=== PATIENT | male | born 1955 | race Caucasian/White ===

== ENCOUNTER 2017-06-19 12:39 | Inpatient (IN) | payer OTHER ==
[~2017-06-19] VITALS: Ht 180.3 cm; Wt 99.8 kg
--- NOTE | 2017-06-19 14:55 | NUR ---
PRE -ASSESSMENT PRE ASSESSMENT DONE AT INTAKE OFFICE, PATIENT IS ALERT BUT SLIGHTLY INTOXICATED. HE PRESENTS WITH SLURRED SPEECH AND ANXIOUS MOOD. T. 98.1 HR 75 BP 108/59 O2 97% AND NO VERBAL COMPLAINTS OF PAIN. HE DENIES ANY ALLERGIES, FULL CODE AND STATES THAT HE IS A DIABETIC TAKING ORAL MEDS BUT LATELY WITH HIS DRINKING HE HAS NOT BEEN CHECKING HIS BLOOD SUGARS. PATIENT HAD HIP SURGERY 04/2017 AND COMPLICATIONS AFTER AND HAS 8 STITCHES IN LEFT HIP THAT ARE DRY AND INTACT. MD ON UNIT TO ASSESS PATIENT, WILL CONTINUE TO MONITOR. PATIENT IS HERE FOR SUPERVISED MEDICAL DETOX FROM ALCOHOL-VODKA AND HYDROCODONE/OPIATES.
--- NOTE | 2017-06-19 15:00 | NUR ---
ADMISSION NOTE The patient is a 61-year-old male who presents to [facility] for medically supervised withdrawal from alcohol and hydrocodone. The patient reports recently achieving thirty years of sobriety but relapsed two months ago. He reports the cause of the relapse was due to undergoing orthopedic surgery followed by a post-operative pain management prescription for hydrocodone, which he began not taking as prescribed. For the last two months, he reports using up to 225 mg of hydrocodone on a daily basis, last used on the day prior to admission. He reports relapsing with alcohol over one month ago, gradually increasing the quantity of alcohol consumed, but acknowledges drinking on a daily basis. However, for the last three days, he reports consuming up to one gallon of vodka on a daily basis, last used on the day of admission. He reports also taking unspecified quantities of Soma not as prescribed and zolpidem on a nightly basis. He has struggled with multiple attempts at sobriety, the longest being for thirty years prior to his recent relapse. The patient denies a history of withdrawal-induced seizures, but reports a history of accidental intoxication-induced overdoses. At the time of admission, the patient was acutely intoxicated from large quantities of alcohol consumed prior to admission without evidence of withdrawal. vital signs stable, last COWS 8 and CIWA 11
[2017-06-19] MEDS ORDERED: ZOLP10TA2 PO (16:32)
[2017-06-19] MEDS ORDERED: IBUP-1957 PO (16:32)
[2017-06-19] MEDS ORDERED: HYDR-3976 PO (16:32)
[2017-06-19] MEDS ORDERED: CELE200C PO (16:32)
[2017-06-19] MEDS ORDERED: DEXL60CA3 PO (16:32)
[2017-06-19] MEDS ORDERED: VALS1TAB7 PO (16:32)
[2017-06-19] MEDS ORDERED: EMPA10TA PO (16:32)
[2017-06-19] MEDS ORDERED: CARI350T PO (16:32)
[2017-06-19] MEDS ORDERED: CIPR500T5 PO (16:32)
[2017-06-19] MEDS ORDERED: MUPI22OI2 (16:32)
[2017-06-19] MEDS ORDERED: BISA-79 PO (16:32)
[2017-06-19] MEDS ORDERED: FAMO40TA71 PO (16:32)
[2017-06-19] MEDS ORDERED: GABA-534 PO (16:32)
[2017-06-19] MEDS ORDERED: ROSU20TA PO (16:32)
[2017-06-19] MEDS ORDERED: MAG HYDROX/AL HYDROX/SIMETH 30 ML LIQUID UDC PO PRN (16:45)
[2017-06-19] MEDS ORDERED: MIRALAX 17 GM POWD.PACK PO PRN (16:45)
[2017-06-19] MEDS ORDERED: LORAZEPAM 1 MG TABLET PO PRN (16:45)
[2017-06-19] MEDS ORDERED: CLONIDINE HCL 0.1 MG TABLET PO PRN (16:45)
[2017-06-19] MEDS ORDERED: BUPRENORPHINE HCL 2 MG TAB.SUBL SL PRN (16:45)
[2017-06-19] MEDS ORDERED: ONDANSETRON 4 MG/2 ML VIAL IM PRN (16:45)
[2017-06-19] MEDS ORDERED: IBUPROFEN 600 MG TABLET PO PRN (16:45)
[2017-06-19] MEDS ORDERED: LOPERAMIDE HCL 2 MG CAPSULE PO PRN ×2 (16:45)
[2017-06-19] MEDS ORDERED: LORAZEPAM 2 MG/1 ML VIAL IM PRN (16:45)
[2017-06-19] MEDS ORDERED: DICYCLOMINE HCL 20 MG TABLET PO PRN (16:45)
[2017-06-19] MEDS ORDERED: MAGNESIUM HYDROXIDE 30 ML LIQUID UDC PO PRN (16:45)
[2017-06-19] MEDS ORDERED: ACETAMINOPHEN 325 MG TABLET PO PRN (16:45)
[2017-06-19] MEDS ORDERED: ONDANSETRON ODT 4 MG TAB.RAPDIS SL PRN (16:45)
[2017-06-19] MEDS ORDERED: hydrALAZINE HCL 50 MG TABLET PO PRN (16:45)
[2017-06-19] MEDS ORDERED: RIZATRIPTAN 10MG PO PRN (17:00)
[2017-06-19 17:57] LABS: *AMPHETAMINE, URINE NEGATIVE (NEGATIVE); *BARBITURATE, URINE NEGATIVE (NEGATIVE); *CANNABINOID, URINE NEGATIVE (NEGATIVE); *COCCAINE, URINE NEGATIVE (NEGATIVE); *OPIATE, URINE POSITIVE (NEGATIVE); *PHENCYCLIDINE SCREEN,URINE NEGATIVE (NEGATIVE)
[2017-06-19] MEDS ORDERED: THIAMINE HCL 200 MG/2 ML VIAL IM ONE (18:00)
--- NOTE | 2017-06-19 19:13 | NUR ---
END OF SHIFT 61 YEAR OLD MALE ADMITTED TODAY 06/19/17 FOR ALCOHOL AND OPIATE WITHDRAWAL. UDS SENT TO LAB, AWAITING BLOOD DRAW AT THIS TIME. PATIENT ALERT AND ORIENTED. HISTORY OF DIABETES, MEDICATION CONTROLLED BY JARDIANCE PO 10MG PATIENT INSTRUCTED ON RULES OF THE UNIT AND STATES UNDERSTANDING. LAST CIWA 11 COWS 8 @ [address], BED ON LOW LOCKED POSITION WITH 2 SIDE RAILS UP. 5 DAY SUBUTEX/ATIVAN TAPER TO START WHEN PATIENT IS IN WITHDRAWAL PER MD. CONTINUE TO MONITOR
--- NOTE | 2017-06-19 19:30 | NUR ---
START OF SHIFT Pt is a 61 y/o male admitted for ETOH/OPIATE dependency.Pt is A/O X 4.PMH of diabetes,GERD and hip surgery on 05/02/17,still has stitches.Stitches are dry and intact.;no s/s if infection noted.Pt presented with extreme anxiety and restlessness,due to pain, withdrawal symptoms including nausea and myalgia.COWS=26,CIWA=23.Breathing is even and non labored;all safety measures are in place per hospital policy with call light within reach;will continue to medicate per orders and monitor for safety.
[2017-06-19] MEDS: LORAZEPAM 1 MG TABLET PO PRN (19:59)
[2017-06-19] MEDS: METHOCARBAMOL 750 MG TABLET PO PRN (19:59)
--- NOTE | 2017-06-19 20:00 | NUR ---
PRN MEDS PRN ATIVAN 2 MG PO GIVEN FOR CIWA 23,PRN SUBUTEX 4 MG SL GIVEN FOR COWS 26,PRN ROBAXIN AND ZOFRAN GIVEN ORDERED FOR C/O MYALGIA AND NAUSEA RESPECTIVELY.WILL MONITOR FOR EFFECTIVENESS.
--- NOTE | 2017-06-19 20:30 | NUR ---
PRN F/U PRN ZOFRAN IS EFFECTIVE,NAUSEA RELIEVED.
[2017-06-19] MEDS ORDERED: LORAZEPAM 1 MG TABLET PO SCH (21:00)
[2017-06-19] MEDS ORDERED: PATIENT MAY USE OWN MED- MD OK PO SCH ×2 (21:00→22:15)
[2017-06-19] MEDS ORDERED: BUPRENORPHINE HCL 2 MG TAB.SUBL SL SCH (21:00)
--- NOTE | 2017-06-19 21:00 | NUR ---
UNABLE TO REASSESS FOR COWS/CIWA AT THIS TIME,D/T PT BEING ASLEEP.WILL CONTINUE TO MONITOR.
[2017-06-19] MEDS: GABAPENTIN 300 MG CAPSULE PO SCH (21:12)
[2017-06-19] MEDS: CELECOXIB 200 MG PO SCH (21:12)
[2017-06-19] MEDS: ROSUVASTATIN 20MG PO SCH (21:13)
[2017-06-19 21:22] LABS: BASOPHILS % (AUTO) 0.4 % (0.0-2.0); BILIRUBIN,TOTAL 0.2 mg/dL (0.2-1.0); CREATININE 1.5 mg/dL (0.6-1.3); EOSINOPHILS # (AUTO) 0.1 K/uL (0.0-0.7); EOSINOPHILS % (AUTO) 0.6 % (0.0-7.0); HEMATOCRIT 40.7 % (36.7-47.1); HEMOGLOBIN 13.9 g/dL (12.5-16.3); LYMPHOCYTES # (AUTO) 2.2 K/uL (20.0-40.0); LYMPHOCYTES % (AUTO) 23.2 % (20.5-51.5); MEAN CORPUSCULAR HEMOGLOBIN 27.5 uug (23.8-33.4); MEAN CORPUSCULAR HGB CONC 34 g/dL (32.5-36.3); MEAN CORPUSCULAR VOLUME 80.6 fL (73.0-96.2); MONOCYTES # (AUTO) 0.8 K/uL (2.0-10.0); NEUTROPHILS # (AUTO) 6.4 K/uL (1.8-8.9); NEUTROPHILS % (AUTO) 67.8 % (38.5-71.5); PLATELET COUNT (AUTO) 340 K/uL (152-348); POTASSIUM 3.4 mmol/L (3.5-5.1); RED BLOOD CELL COUNT(AUTO) 5.06 MIL/uL (4.06-5.63); WHITE BLOOD COUNT (AUTO) 9.4 K/uL (3.6-10.2)
[2017-06-19] MEDS ORDERED: POTASSIUM CHLORIDE 20 MEQ TAB.PRT.SR PO ONE (21:45)
[2017-06-19] MEDS ORDERED: POTASSIUM CHLORIDE 20 MEQ TAB.PRT.SR ONE (22:02)
[2017-06-19] MEDS ORDERED: PANTOPRAZOLE SODIUM 40 MG TABLET.DR PO ONE ×2 (22:45→22:59)
--- NOTE | 2017-06-19 22:46 | NUR ---
PT C/O HAVING REFLUX PROBLEM.MD NOTIFIED.PROTONIX GIVEN ORDERED.ALSO K DUR GIVEN ORDERED FOR LOW POTASSIUM LEVEL.
[2017-06-20] VITALS: BP 128/77
--- NOTE | 2017-06-20 | NUR ---
COWS/CIWA/TEMP DEFERRED D/T PT BEING ASLEEP. BREATHING IS EVEN AND NON LABORED,NO S/S OF DISTRESS NOTED.
[2017-06-20 04:00] VITALS: BP 143/76
--- NOTE | 2017-06-20 06:37 | NUR ---
END OF SHIFT Pt is a 61 y/o male admitted for ETOH/OPIATE dependency.Pt is A/O X 4.PMH of diabetes,GERD and hip surgery on 05/02/17,still has stitches.Stitches are dry and intact.;no s/s if infection noted.Pt presented with extreme anxiety and restlessness,due to pain, withdrawal symptoms including nausea and myalgia.Initial COWS=26,CIWA=23.Last COWS=7, CIWA=5.PRN meds Ativan,Subutex,Zofran and Robaxin were given and were effective.Pt slept 5 hres,fluid intake was 2000 mls,voided x 3.Breathing is even and non labored;all safety measures are in place per hospital policy with call light within reach;will continue to medicate per orders and monitor for safety.
--- NOTE | 2017-06-20 07:30 | NUR ---
Start of Shift report: A/O x4 Lying in bed watching Tv. C/o anxiety and right hip pain. Encourage po fluids and rest. Pt on 5day ativan subutex taper. Tolerating well. skin w/d. Resp even and unlab. safety precautions observed. Call light within reach.
[2017-06-20] MEDS: LORAZEPAM 1 MG TABLET PO SCH ×3 (08:48→21:12)
[2017-06-20] MEDS: THIAMINE HCL 100 MG TABLET PO SCH (08:49)
[2017-06-20] MEDS: MULTIVITAMINS,THERAPEUTIC TABLET PO SCH (08:49)
[2017-06-20] MEDS: FOLIC ACID 1 MG TABLET PO SCH (08:49)
[2017-06-20] MEDS: GABAPENTIN 300 MG CAPSULE PO SCH ×3 (08:49→21:12)
[2017-06-20] MEDS: VALSARTAN PO SCH (08:50)
[2017-06-20] MEDS: HCTZ PO SCH (08:50)
[2017-06-20] MEDS: KETOROLAC TROMETHAMINE 30 MG INJ IM PRN (08:50)
[2017-06-20] MEDS: CELECOXIB 200 MG PO SCH ×2 (08:51→17:00)
[2017-06-20] MEDS: FAMOTIDINE 40MG PO SCH (08:51)
[2017-06-20] MEDS: JARDIANCE 10MG PO SCH (08:51)
[2017-06-20] MEDS: BUPRENORPHINE HCL 2 MG TAB.SUBL SL SCH ×3 (08:54→21:13)
[2017-06-20] MEDS ORDERED: TUBERCULIN,PURIF.PROT.DERIV. 5 TU/0.1 ML TEST ID ONE (09:00)
[2017-06-20] MEDS ORDERED: PATIENT MAY USE OWN MED- MD OK PO SCH (09:03)
--- NOTE | 2017-06-20 09:25 | NUR ---
Followup on right hip pain 8-10 Toradol effective 2-10 right hip pain denies of any anxiety.
[2017-06-20 10:03] VITALS: BP 143/76
[2017-06-20 12:26] VITALS: BP 137/76
[2017-06-20] MEDS: LORAZEPAM 1 MG TABLET PO PRN (13:45)
--- NOTE | 2017-06-20 13:51 | NUR ---
C/o 10-10 Anxiety [facility] that are over due. Notified Charge Nurse and given Ativan 2mg po.
--- NOTE | 2017-06-20 14:35 | NUR ---
Lying in bed denies of any anxiety Charge Nurse took picture of pt's r hip area and placed photo in chart right hip incision well proximated no s/s of infection 8 sutures intact.
[2017-06-20 17:39] VITALS: BP 142/90
[2017-06-20 20:00] VITALS: BP 133/94
--- NOTE | 2017-06-20 20:00 | NUR ---
Start of Shift Patient admitted for Hydrocodone and Alcohol dependence. Pt became dependent on Hydrocodone due to undergoing an orthopedic procedure. Pt in room with no SOB nor facial grimacing noted. Pt is AAOx4 and noted to be anxious. Pt was placed on a 5-day Ativan, and 5-day Subutex tapers, to end on 06/24/17 AM time. Provided teachings and education on plan of care. Verbalized understanding. Fall, universal, seizure and safety prec in place. Call light within reach. Latest COWS-5, CIWA-6. Will continue to monitor.
[2017-06-20] MEDS: ROSUVASTATIN 20MG PO SCH (21:15)
[2017-06-21] VITALS: BP 127/85
[2017-06-21 04:00] VITALS: BP 136/90
[2017-06-21] MEDS ORDERED: DEXILANT 60 MG PO SCH (07:00)
--- NOTE | 2017-06-21 07:19 | NUR ---
End of Shift Patient admitted for Hydrocodone and Alcohol dependence. Pt became dependent on Hydrocodone due to undergoing an orthopedic procedure. Pt in room with no SOB nor facial grimacing noted. Pt is AAOx4 and noted to be anxious. Pt was placed on a 5-day Ativan, and 5-day Subutex tapers, to end on 06/24/17 AM time. Provided teachings and education on plan of care. Verbalized understanding. Fall, universal, seizure and safety prec in place. Call light within reach. Latest COWS-5, CIWA-4, slept for 10 hours. Endorsed to AM shift nurse for continuity of care.
[2017-06-21 08:00] VITALS: BP 161/98
--- NOTE | 2017-06-21 08:10 | NUR ---
Start of Day Shift: A/0 x4 c/o 7-10 right hip pain ciwa 10 cow 9 given am meds with subutex and ativan taper. Encourage po fluids and rest. Safety/fall precautions followed. Contiued to [facility] for safety. Call light within reach.
[2017-06-21] MEDS: THIAMINE HCL 100 MG TABLET PO SCH (08:15)
[2017-06-21] MEDS: FOLIC ACID 1 MG TABLET PO SCH (08:15)
[2017-06-21] MEDS: MULTIVITAMINS,THERAPEUTIC TABLET PO SCH (08:15)
[2017-06-21] MEDS: GABAPENTIN 300 MG CAPSULE PO SCH ×3 (08:15→20:29)
[2017-06-21] MEDS: FAMOTIDINE 40MG PO SCH (08:16)
[2017-06-21] MEDS: JARDIANCE 10MG PO SCH (08:16)
[2017-06-21] MEDS: LORAZEPAM 1 MG TABLET PO SCH ×4 (08:16→20:31)
[2017-06-21] MEDS: VALSARTAN PO SCH (08:17)
[2017-06-21] MEDS: HCTZ PO SCH (08:17)
[2017-06-21] MEDS: CELECOXIB 200 MG PO SCH ×2 (08:17→17:17)
[2017-06-21] MEDS ORDERED: BUPRENORPHINE HCL 2 MG TAB.SUBL SL SCH (09:00)
[2017-06-21 09:12] LABS: HEPATITIS B SURFACE AG Negative (Negative)
--- NOTE | 2017-06-21 09:49 | NUR ---
Follow up right hip pain Toradol effective right hip pain 2-10.
[2017-06-21 09:56] LABS: CREATININE 0.9 mg/dL (0.6-1.3); MAGNESIUM 1.8 mg/dL (1.8-2.4); PHOSPHOROUS 3.4 mg/dL (2.5-4.9); POTASSIUM 3.7 mmol/L (3.5-5.1)
[2017-06-21 12:32] VITALS: BP 135/87
[2017-06-21] MEDS: BUPRENORPHINE HCL 2 MG TAB.SUBL SL SCH ×2 (15:11→20:31)
[2017-06-21] MEDS: BACLOFEN 10 MG TABLET PO SCH ×2 (15:12→20:30)
--- NOTE | 2017-06-21 15:49 | NUR ---
Consult order placed for Diabetic diet education. CELY provided DM diet education to patient . Tolerating current diet, eating 75-100% of meals Anthropometry:current weight is 220lb,BMI 30.7-obesity labs: 06/21 bun-28,glucose 137(h0,[id number]-4.2 MEDICATION:VITAMIN B1,FOLIC ACID,MVI, NO DNI Full nutrition assessment will be per schedule policy . Addendum: 06/23/17 at [address] Amended: Links added.
[2017-06-21 16:41] VITALS: BP 153/92
--- NOTE | 2017-06-21 18:24 | NUR ---
End of shift report: CIWA 14 COW 8 Hr 120's B/p 158/78 given B/p meds and ativan 1mg po. Client upset over not able to use the phone for business purposes. Will reeval v/s. Continue mointor for safety.
--- NOTE | 2017-06-21 18:40 | NUR ---
Re evaluation on v/s b/p 119 64 H[address] 103. 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
--- NOTE | 2017-06-21 19:30 | NUR ---
Start of Shift Notes Received 61 y/o male px admitted on 06/19/2017 for Hydrocodone and Alcohol dependence. Px is A&Ox4. Px has NKA, on DM diet and on Full code. Px was placed on a 5-day Ativan, and 5-day Subutex tapers. During the rounds at 1930, px reported moderate anxiety, sweats, very mild tremors and body aches of 8/10. Bed on lowest position, side rails up 2x, and call light within reach. We'll continue to monitor.
[2017-06-21 20:00] VITALS: BP 119/71
[2017-06-21] MEDS: ROSUVASTATIN 20MG PO SCH (20:28)
[2017-06-21] MEDS: DEXILANT 60 MG PO SCH (20:29)
[2017-06-21] MEDS: CLONIDINE HCL 0.1 MG TABLET PO SCH (20:30)
[2017-06-21] MEDS ORDERED: POTASSIUM CHLORIDE 20 MEQ TAB.PRT.SR PO ONE (21:00)
[2017-06-21] MEDS ORDERED: MAGNESIUM OXIDE 400 MG TABLET PO ONE (21:00)
[2017-06-22] VITALS: BP 120/70
[2017-06-22 04:00] VITALS: BP 127/71
--- NOTE | 2017-06-22 04:00 | NUR ---
COWS and CIWA deferred COWS and CIWA deferred at 0000 and 0400 due to the px is asleep, to assess if the px is awake per doctor's order. We'll continue to monitor.
--- NOTE | 2017-06-22 07:12 | NUR ---
End of Shift Notes 61 y/o male px admitted on 06/19/2017 for Hydrocodone and Alcohol dependence. Px is A&Ox4. Px has NKA, on DM diet and on Full code. Px was placed on a 5-day Ativan, and 5-day Subutex tapers. During the shift, px reported moderate anxiety, sweats, very mild tremors and body aches of 8/10. Oral intake of 1,500 ml, voided 4x, BM 1x. Slept for 7.5 hours. Bed on lowest position, side rails up 2x, and call light within reach. We'll continue to monitor.
--- NOTE | 2017-06-22 07:40 | NUR ---
START OF SHIFT Rcvd endorsement from ongoing nurse, client is in room, he presents with anxious mood, flat affect, moist skin, tremors felt, not observed. He reports feeling very anxious, stomach cramps, generalized body aches, restless legs, and fatigue. Stitches on R hip intact (sp R hip replacement 05/02/17), client requests to know when they will be removed. Encouraged client to attend group therapy for skills to maintain sober. Encourage client to increase PO fluid intake as tolerated to facilitate detox. Client is a 61 y/o male admitted to [facility] for withtdrawal from alcohol and hydrocodone. He is on 5 day Ativan, 5 day Subutex taper, (day 3), tolerating well. Client reports NKA, full code, consistent carbohydrate diet. Bed in lowest/locked position, side rails x 2 up/padded. call light within reach.
[2017-06-22 08:55] VITALS: BP 136/87
[2017-06-22] MEDS: THIAMINE HCL 100 MG TABLET PO SCH (08:59)
[2017-06-22] MEDS: GABAPENTIN 300 MG CAPSULE PO SCH ×3 (08:59→21:12)
[2017-06-22] MEDS: FOLIC ACID 1 MG TABLET PO SCH (08:59)
[2017-06-22] MEDS: LORAZEPAM 1 MG TABLET PO SCH ×3 (08:59→21:11)
[2017-06-22] MEDS: MULTIVITAMINS,THERAPEUTIC TABLET PO SCH (08:59)
[2017-06-22] MEDS: BACLOFEN 10 MG TABLET PO SCH (08:59)
[2017-06-22] MEDS: BUPRENORPHINE HCL 2 MG TAB.SUBL SL SCH ×3 (09:00→21:11)
[2017-06-22] MEDS: CLONIDINE HCL 0.1 MG TABLET PO SCH ×2 (09:00→21:12)
[2017-06-22] MEDS: JARDIANCE 10MG PO SCH (09:03)
[2017-06-22] MEDS: FAMOTIDINE 40MG PO SCH (09:03)
[2017-06-22] MEDS: HCTZ PO SCH (09:03)
[2017-06-22] MEDS: VALSARTAN PO SCH (09:03)
[2017-06-22] MEDS: CELECOXIB 200 MG PO SCH ×2 (09:03→17:50)
--- NOTE | 2017-06-22 12:25 | NUR ---
Therapist prompted client to attend group today. Client agreed to attend.
[2017-06-22 12:56] VITALS: BP 116/85
[2017-06-22] MEDS: KETOROLAC TROMETHAMINE 30 MG INJ IM PRN (13:23)
--- NOTE | 2017-06-22 13:23 | NUR ---
PRN Clonidine 0.1mg PO, Toradol 30mg Inj IM administered for anxiety MB P 110, irritability, and lower back pain 01/18 respectively. Will continue to monitor. Call light within reach.
--- NOTE | 2017-06-22 13:53 | NUR ---
Reassessment PRN Toradol 30mg Inj IM, client reports a decrease in lower back pain 2/10, but tolerable. Call light within reach.
--- NOTE | 2017-06-22 14:23 | NUR ---
PRN Clonidine 0.1mg PO, client is in bed, he sound asleep, RR 16, even, non-labored. Will continue to monitor. Call light within reach. Addendum: 06/22/17 at 1902 by INGE PRUITT RN REASSESSMENT
[2017-06-22] MEDS ORDERED: METHYL SALICYLATE/MENTHOL CREAM 28 GM TUBE TOP PRN (14:30)
--- NOTE | 2017-06-22 15:20 | NUR ---
Therapist prompted client to attend group. Client agreed
[2017-06-22 16:00] VITALS: BP 126/72
--- NOTE | 2017-06-22 19:02 | NUR ---
END OF SHIFT Client is a 61 y/o male admitted to [facility] for withdrawal from alcohol and hydrocodone. He is on 5 day Ativan, 5 day Subutex taper, (day 3), tolerating well. PRN Clonidine 0.1mg PO, Toradol 30mg Inj IM administered for anxiety MB P 110, irritability, and lower back pain 01/18 respectively, noted effective. Adequate PO fluid intake 3363mL, void x 3, stool x 1. Clienmt is compliant with 2/3 og group therapy. Client reports NKA, full code, consistent carbohydrate diet. Bed in lowest/locked position, side rails x 2 up/padded. call light within reach.
--- NOTE | 2017-06-22 19:10 | NUR ---
Nursing notes Nurse Practitioner gave a verbal order, read back to her, daily cleanse to area on R anterior thigh with normal saline, pat dry and cover with gauze.
--- NOTE | 2017-06-22 19:15 | NUR ---
START OF SHIFT NOTE : Pt. is 61 year old male, admitted to [facility] on 06/19/2017 for opiates and ETOH detox treatment. He is on 5 day Ativan, 5 day Subutex taper, tolerating well. Client reports NKA, full code, consistent carbohydrate diet. Pt. presents with anxious mood, flat affect, tremors felt, not observed. He reports feeling very anxious, restless legs, and fatigue. Stitches on R hip intact (sp R hip replacement 05/02/17). Pt. was seen by [facility], new order given. Bed in lowest/locked position, side rails x 2 up/padded. call light within reach.
[2017-06-22 20:00] VITALS: BP 105/74
--- NOTE | 2017-06-22 21:00 | NUR ---
PRN BENADRYL Pt. complains of sleeplessness. PRN BENADRYL given as ordered. Safety measures in place : bed on lowest position with side rails x2 up for safety, call light within reach. Will continue to monitor closely and offer help.
[2017-06-22] MEDS: diphenhydrAMINE 50 MG CAPSULE PO PRN (21:11)
[2017-06-22] MEDS: BACLOFEN 20 MG TABLET PO SCH (21:11)
[2017-06-22] MEDS: DEXILANT 60 MG PO SCH (21:12)
[2017-06-22] MEDS: ROSUVASTATIN 20MG PO SCH (21:12)
--- NOTE | 2017-06-22 22:00 | NUR ---
RE-ASSESSMENT DREAD Pt. is sleeping, RR=16 unlabored and even. Safety measures in place : bed on lowest position with side rails x2 up for safety, call light within reach. Will continue to monitor closely and offer help.
--- NOTE | 2017-06-23 06:41 | NUR ---
END OF SHIFT NOTE : Pt. is 61 year old male, admitted to [facility] on 06/19/2017 for opiates and ETOH detox treatment. He is on 5 day Ativan, 5 day Subutex taper, tolerating well. Client reports NKA, full code, consistent carbohydrate diet. Pt. presents with anxious mood, flat affect, tremors felt, not observed. He reports feeling very anxious, restless legs, and fatigue. Stitches on R hip intact (sp R hip replacement 05/02/17). Dressing change should be done x 1 daily. Pt remains compliant with the treatment plan. PRN Benadryl were given during my shift. V/S remain WNL. RR=16, even and unlabored, lungs clear upon auscultation, abdomen soft and non- distended. Pt denies nausea, vomiting and diarrhea. CIWA and COWS taken when pt. was alert during the night, LAST CIWA=4 ,COWS=4 at 0400 , INTAKE=1,000 ml, voided x2 , slept 9 hours. Safety measures in place : bed on lowest position with side rails x2 up for safety, call light within reach. Will continue to monitor closely and offer help.
--- NOTE | 2017-06-23 07:40 | NUR ---
START OF SHIFT Rcvd endorsement from ongoing nurse, client is in room, he presents with depressed mood, flat affect. He reports feeling , stomach cramps, generalized body aches, restless legs, and fatigue. Stitches on R anterior thigh, skin intact, no redness or drainage noted, (sp R hip replacement additional procedure on 06/05/17), daily cleanse with NS, pat dry, cover with gauze. Encouraged client to attend group therapy for skills to maintain sober. Encourage client to increase PO fluid intake as tolerated to facilitate detox. Client is a 61 y/o male admitted to [facility] for withdrawal from alcohol and hydrocodone. He is on 5 day Ativan, 5 day Subutex taper, (day 4), tolerating well. Benadryl 50mg PO for inability to sleep, he slept 9 hrs. Client reports NKA, full code, consistent carbohydrate diet. Bed in lowest/locked position, side rails x 2 up/padded. call light within reach.
[2017-06-23 08:00] VITALS: BP 124/80
[2017-06-23] MEDS: THIAMINE HCL 100 MG TABLET PO SCH (08:56)
[2017-06-23] MEDS: MULTIVITAMINS,THERAPEUTIC TABLET PO SCH (08:56)
[2017-06-23] MEDS: BACLOFEN 20 MG TABLET PO SCH ×3 (08:56→20:25)
[2017-06-23] MEDS: LORAZEPAM 1 MG TABLET PO SCH ×2 (08:56→20:24)
[2017-06-23] MEDS: CLONIDINE HCL 0.1 MG TABLET PO SCH ×2 (08:56→20:24)
[2017-06-23] MEDS: FOLIC ACID 1 MG TABLET PO SCH (08:56)
[2017-06-23] MEDS: GABAPENTIN 300 MG CAPSULE PO SCH ×3 (08:56→20:25)
[2017-06-23] MEDS: JARDIANCE 10MG PO SCH (08:57)
[2017-06-23] MEDS: CELECOXIB 200 MG PO SCH ×2 (08:57→18:11)
[2017-06-23] MEDS: VALSARTAN PO SCH (08:57)
[2017-06-23] MEDS: FAMOTIDINE 40MG PO SCH (08:57)
[2017-06-23] MEDS: HCTZ PO SCH (08:57)
[2017-06-23] MEDS: BUPRENORPHINE HCL 2 MG TAB.SUBL SL SCH ×2 (09:01→20:24)
--- NOTE | 2017-06-23 12:27 | NUR ---
therapist prompted client to come into group. Client agreed
[2017-06-23 12:28] VITALS: BP 148/86
[2017-06-23] MEDS: KETOROLAC TROMETHAMINE 30 MG INJ IM PRN (13:20)
--- NOTE | 2017-06-23 13:20 | NUR ---
PRN Toradol 30mg Inj IM administered for lower back pain 01/18. Will continue to monitor. Call light within reach.
--- NOTE | 2017-06-23 13:50 | NUR ---
Reassessment PRN Toradol 30mg Inj IM help decrease lower back pain to 4/10, but tolerable. Schedule medication Gabapentin 300mg and Baclofen 20mg administered. Call light within reach.
[2017-06-23 16:58] VITALS: BP 126/76
--- NOTE | 2017-06-23 19:00 | NUR ---
END OF SHIFT Client is a 61 y/o male admitted to [facility] for withdrawal from alcohol and hydrocodone. He is on 5 day Ativan, 5 day Subutex taper, (day 4), tolerating well. PRN Toradol 30mg IM for lower back pain 8/10, decreased pain to 4/10, but tolerable. Adequate PO fluid intake 2988mL, void x 6, stool x 1. Additional education needed on diabetic diet. Client is compliant with group therapy. Client reports NKA, full code, consistent carbohydrate diet. Bed in lowest/locked position, side rails x 2 up/padded. call light within reach. Endorsed to incoming nurse.
--- NOTE | 2017-06-23 19:15 | NUR ---
START OF SHIFT NOTE : Pt. is 61 year old male, admitted to [facility] on 06/19/2017 for opiates and ETOH detox treatment. He is on 5 day Ativan, 5 day Subutex taper, tolerating well. Client reports NKA, full code, consistent carbohydrate diet. Pt. presents with anxious mood, flat affect, tremors felt, not observed. He complains of increased level of anxiety, restless legs. Stitches on R hip intact (sp R hip replacement 05/02/17). Dressing change should be done x 1 daily. Safety measures in place : bed on lowest position with side rails x2 up for safety, call light within reach. Will continue to monitor closely and offer help.
[2017-06-23 20:00] VITALS: BP 129/82
[2017-06-23] MEDS: diphenhydrAMINE 50 MG CAPSULE PO PRN (20:25)
[2017-06-23] MEDS: DEXILANT 60 MG PO SCH (20:37)
[2017-06-23] MEDS: ROSUVASTATIN 20MG PO SCH (20:37)
--- NOTE | 2017-06-24 06:34 | NUR ---
END OF SHIFT NOTE : Pt. is 61 year old male, admitted to [facility] on 06/19/2017 for opiates and ETOH detox treatment. He is on 5 day Ativan, 5 day Subutex taper, tolerating well. Client reports NKA, full code, consistent carbohydrate diet. Pt remains compliant with the treatment plan. PRN BENADRYL given during my shift. V/S remain WNL. RR=16, even and unlabored, lungs clear upon auscultation, abdomen soft and non- distended. Pt denies nausea, vomiting and diarrhea. CIWA and COWS taken when pt. was alert during the night, LAST CIWA=5 ,COWS=5 at 0400 , UITRLY=223 ml, voided x1 , slept 7 hours. Safety measures in place : bed on lowest position with side rails x2 up for safety, call light within reach. Will continue to monitor closely and offer help.
--- NOTE | 2017-06-24 08:00 | NUR ---
Start Shift Report- Rcvd endorsement from ongoing nurse, client is in room, he presents with depressed mood, flat affect. He denies c/o pain, N/V/D. Encouraged Pt to increase fluid intake as tolerated to facilitate detox. Encourage Pt to attend group therapy to maintain sobriety. Stitches on R anterior thigh, skin intact, no redness or drainage noted, (sp R hip replacement additional procedure on 06/05/17), daily cleanse with NS, pat dry, cover with gauze. Client is a 62 y/o male admitted to [facility] for withdrawal from alcohol and hydrocodone. He is on 5 day Ativan, 5 day Subutex taper, (day 3), tolerating well. He slept 7 hrs. Client reports NKA, full code, consistent carbohydrate diet. Bed in lowest/locked position, side rails x 2 up/padded. call light within reach. Will continue to monitor. Addendum: 06/24/17 at 0846 by mEi العلي RN 399 last [facility]
[2017-06-24 08:47] VITALS: BP 133/79
[2017-06-24] MEDS ORDERED: BUPRENORPHINE HCL 2 MG TAB.SUBL SL SCH (09:00)
[2017-06-24] MEDS ORDERED: LORAZEPAM 1 MG TABLET PO SCH (09:00)
[2017-06-24] MEDS: GABAPENTIN 300 MG CAPSULE PO SCH ×3 (09:30→20:53)
[2017-06-24] MEDS: CLONIDINE HCL 0.1 MG TABLET PO SCH ×2 (09:31→20:53)
[2017-06-24] MEDS: FOLIC ACID 1 MG TABLET PO SCH (09:31)
[2017-06-24] MEDS: CELECOXIB 200 MG PO SCH ×2 (09:31→16:44)
[2017-06-24] MEDS: BACLOFEN 20 MG TABLET PO SCH ×3 (09:31→20:53)
[2017-06-24] MEDS: FAMOTIDINE 40MG PO SCH (09:31)
[2017-06-24] MEDS: JARDIANCE 10MG PO SCH (09:32)
[2017-06-24] MEDS: HCTZ PO SCH (09:32)
[2017-06-24] MEDS: MULTIVITAMINS,THERAPEUTIC TABLET PO SCH (09:32)
[2017-06-24] MEDS: THIAMINE HCL 100 MG TABLET PO SCH (09:32)
[2017-06-24] MEDS: VALSARTAN PO SCH (09:32)
--- NOTE | 2017-06-24 12:00 | NUR ---
Incision assessment- Incision right hip with sutures. Clean, dry, no drainage. Completed NS rinse , pat dry with 4x4. Applied dry gauze dressing.
[2017-06-24 12:24] VITALS: BP 119/74
[2017-06-24] MEDS ORDERED: GABA-534 PO (13:27)
[2017-06-24] MEDS ORDERED: CLON0.1T14 PO (13:27)
[2017-06-24] MEDS ORDERED: METH-406 PO (13:27)
[2017-06-24 16:00] VITALS: BP 132/85
--- NOTE | 2017-06-24 18:33 | NUR ---
End of shift Report- Client is in room watching TV, A/O x4. He presents with depressed mood, flat affect. He c/o chronic pain #5/10, denies N/V/D. Adequate PO fluid intake 2550, voids 5, BM x1. PT compliant and attended group therapy for coping skill to maintain sobriety. Stitches on Rt anterior thigh, dry with dressing , no redness or drainage noted, (sp R hip replacement additional procedure on 06/05/17), daily cleanse with NS, pat dry, cover with gauze. Client is a 62 y/o male admitted to [facility] for withdrawal from alcohol and hydrocodone. He is on 5 day Ativan, 5 day Subutex taper, tolerating well. At 1600 last CIWA 4/COWS 3. Client reports NKA, full code, consistent carbohydrate diet. Bed in lowest/locked position, side rails x 2 up/padded. call light within reach. Will continue to monitor and endorse to PM shift.
[2017-06-24 20:00] VITALS: BP 121/82
--- NOTE | 2017-06-24 20:00 | NUR ---
Start of Shift Notes Received 61 y/o male px admitted on 06/19/2017 for Hydrocodone and Alcohol dependence. Px is A&Ox4. Px has NKA, on DM diet and on Full code. Px completed a 5-day Ativan, and 5-day Subutex taper. During the rounds at 2000, px complained of body aches of 8/10. To D/C tomorrow 06/25/2017 Bed on lowest position, side rails up 2x, and call light within reach. We'll continue to monitor.
[2017-06-24] MEDS: METHOCARBAMOL 750 MG TABLET PO PRN (20:53)
--- NOTE | 2017-06-24 20:53 | NUR ---
PRN Robaxin Px complained of body pains concentrating on right hip 01/18. Robaxin 750 mg/tab, 1 tab given PO as PRN meds. We'll continue to monitor.
[2017-06-24] MEDS: DEXILANT 60 MG PO SCH (20:54)
[2017-06-24] MEDS: ROSUVASTATIN 20MG PO SCH (20:54)
--- NOTE | 2017-06-24 22:00 | NUR ---
Reassessment of pain Px verbalized that pain decreased to 5/10 from 8/10 after an hour of administration of Robaxin 750 mg PO. We'll continue to monitor.
[2017-06-25] VITALS: BP 105/77
[2017-06-25 04:00] VITALS: BP 115/81
--- NOTE | 2017-06-25 07:08 | NUR ---
Start of shift note; Received report from night nurse. Patient is a 61 year old male admitted on 06/19/17 to detoxify from ETOH, Opioid. Patient completed 5 day Ativan and 5 day Subutex taper without any adverse reactions. Patient reported history of DM type 2, hip surgery, GERD, hypertension, depression, insomnia, lower back pain. Patient is on full code status, NKA. Patient is on fall and seizure precaution, bed in lowest position, call light within reach. Will continue to monitor patient.
--- NOTE | 2017-06-25 07:08 | NUR ---
End of Shift Notes 61 y/o male px admitted on 06/19/2017 for Hydrocodone and Alcohol dependence. Px is A&Ox4. Px has NKA, on DM diet and on Full code. Px was placed on a 5-day Ativan, and 5-day Subutex tapers. During the shift, px complained of body aches of 8/10. Robaxin 750 mg/tab, 1 tab given PO as PRN meds. Px to D/C today 06/25/2017. Oral intake of 1,500 ml, voided 3x, BM 1x. Slept for 7.5 hours. Bed on lowest position, side rails up 2x, and call light within reach. We'll continue to monitor.
[2017-06-25] MEDS: FAMOTIDINE 40MG PO SCH (08:13)
[2017-06-25] MEDS: HCTZ PO SCH (08:13)
[2017-06-25] MEDS: THIAMINE HCL 100 MG TABLET PO SCH (08:13)
[2017-06-25] MEDS: CELECOXIB 200 MG PO SCH (08:13)
[2017-06-25] MEDS: JARDIANCE 10MG PO SCH (08:13)
[2017-06-25] MEDS: VALSARTAN PO SCH (08:13)
[2017-06-25] MEDS: GABAPENTIN 300 MG CAPSULE PO SCH (08:14)
[2017-06-25] MEDS: CLONIDINE HCL 0.1 MG TABLET PO SCH (08:14)
[2017-06-25] MEDS: MULTIVITAMINS,THERAPEUTIC TABLET PO SCH (08:14)
[2017-06-25] MEDS: FOLIC ACID 1 MG TABLET PO SCH (08:14)
[2017-06-25] MEDS: BACLOFEN 20 MG TABLET PO SCH (08:14)
--- NOTE | 2017-06-25 08:15 | NUR ---
VSS Discharge papers signed and home medication bag signed.
[2017-06-25 08:59] VITALS: BP 125/78
--- NOTE | 2017-06-25 09:15 | NUR ---
Pt discharged in stable condition with all valuables, belongings and home meds. Denies SI/HI. To home via private car with mother.
== END 2017-06-25 09:15 | disposition home or self-care (01) | DRG 895 ==
LOC: SRC 14:44
PROVIDERS: ADMIT Internal Medicine; ATTEND Internal Medicine
PROC: HZ2ZZZZ Detoxification Services for Substance Abuse Treatment (ICD-10-PCS; principal; 2017-06-19)
PROC: HZ41ZZZ Group Counseling for Substance Abuse Treatment, Behavioral (ICD-10-PCS; 2017-06-20)
PROC: HZ31ZZZ Individual Counseling for Substance Abuse Treatment, Behavioral (ICD-10-PCS; 2017-06-22)
DX: F10.232 Alcohol dependence with withdrawal with perceptual disturbance (principal); N17.9 Acute kidney failure, unspecified; E87.2 Acidosis; I65.29 Occlusion and stenosis of unspecified carotid artery; F13.232 Sedative, hypnotic or anxiolytic dependence with withdrawal with perceptual disturbance; K70.10 Alcoholic hepatitis without ascites; E66.9 Obesity, unspecified; E78.5 Hyperlipidemia, unspecified; F11.23 Opioid dependence with withdrawal; Y90.4 Blood alcohol level of 80-99 mg/100 ml; Z91.89 Other specified personal risk factors, not elsewhere classified; F17.211 Nicotine dependence, cigarettes, in remission; Z68.31 Body mass index [BMI] 31.0-31.9, adult; Z96.641 Presence of right artificial hip joint; E11.9 Type 2 diabetes mellitus without complications; Z79.84 Long term (current) use of oral hypoglycemic drugs; Z79.899 Other long term (current) drug therapy; G43.909 Migraine, unspecified, not intractable, without status migrainosus; G89.29 Other chronic pain; G47.00 Insomnia, unspecified; E87.6 Hypokalemia; I15.9 Secondary hypertension, unspecified; M50.90 Cervical disc disorder, unspecified, unspecified cervical region; Z81.1 Family history of alcohol abuse and dependence; M54.5 Low back pain; F32.9 Major depressive disorder, single episode, unspecified
CPT/HCPCS: 36415; 70030-TC; 80307; 80361; 83735; 84100; 85025; 86580; 86592; 86705; 86803; 87340; 87806; A4663; G0480; J1885; J3411; Q0162; Q0163

== ENCOUNTER 2017-09-09 13:36 | Inpatient (IN) | payer OTHER ==
[~2017-09-09] VITALS: Ht 180.3 cm; Wt 99.8 kg
[~2017-09-09 13:36] MED LIST: BISA-79 PO; CARI350T PO; CELE200C PO; CLON0.1T14 PO; DEXL60CA3 PO; EMPA10TA PO; FAMO40TA71 PO; GABA-534 PO; IBUP-1957 PO; METH-406 PO; MUPI22OI2; ROSU20TA PO; VALS1TAB7 PO
[2017-09-09] MEDS ORDERED: FIDA200T PO (14:21)
[2017-09-09] MEDS ORDERED: METO50TA7 PO (14:21)
[2017-09-09] MEDS ORDERED: TRAZ-144 PO (14:21)
[2017-09-09] MEDS ORDERED: DEXL60CA3 PO (14:21)
[2017-09-09] MEDS ORDERED: VENL37.515 PO (14:21)
[2017-09-09] MEDS ORDERED: RIZA10TA27 PO (14:21)
[2017-09-09] MEDS ORDERED: METF-494 PO (14:21)
[2017-09-09] MEDS ORDERED: ONDANSETRON ODT 4 MG TAB.RAPDIS SL PRN (14:45)
[2017-09-09] MEDS ORDERED: DICYCLOMINE HCL 20 MG TABLET PO PRN (14:45)
[2017-09-09] MEDS ORDERED: hydrALAZINE HCL 50 MG TABLET PO PRN (14:45)
[2017-09-09] MEDS ORDERED: LORAZEPAM 2 MG/1 ML VIAL IM PRN (14:45)
[2017-09-09] MEDS ORDERED: MAG HYDROX/AL HYDROX/SIMETH 30 ML LIQUID UDC PO PRN (14:45)
[2017-09-09] MEDS ORDERED: THIAMINE HCL 200 MG/2 ML VIAL IM ONE (14:45)
[2017-09-09] MEDS ORDERED: MAGNESIUM HYDROXIDE 30 ML LIQUID UDC PO PRN (14:45)
[2017-09-09] MEDS ORDERED: LOPERAMIDE HCL 2 MG CAPSULE PO PRN ×2 (14:45)
[2017-09-09] MEDS ORDERED: NICOTINE 14 MG/24HR PATCH TD PRN (14:45)
[2017-09-09] MEDS ORDERED: PATIENT MAY USE OWN MED- MD OK PO PRN ×2 (14:45→15:00)
[2017-09-09] MEDS ORDERED: ONDANSETRON 4 MG/2 ML VIAL IM PRN (14:45)
[2017-09-09] MEDS ORDERED: DOCUSATE SODIUM 250 MG CAPSULE PO PRN (14:45)
[2017-09-09] MEDS ORDERED: NICOTINE POLACRILEX 4 MG GUM-PK OF TEN BC PRN (14:45)
[2017-09-09] MEDS ORDERED: LORAZEPAM 1 MG TABLET PO PRN (14:45)
[2017-09-09] MEDS ORDERED: MIRALAX 17 GM POWD.PACK PO PRN (14:45)
[2017-09-09] MEDS ORDERED: diphenhydrAMINE 50 MG CAPSULE PO PRN (14:45)
[2017-09-09] MEDS: THIAMINE HCL 100 MG TABLET PO SCH (15:00)
[2017-09-09 15:17] LABS: *AMPHETAMINE, URINE NEGATIVE (NEGATIVE); *BARBITURATE, URINE NEGATIVE (NEGATIVE); *CANNABINOID, URINE NEGATIVE (NEGATIVE); *COCCAINE, URINE NEGATIVE (NEGATIVE); *OPIATE, URINE NEGATIVE (NEGATIVE); *PHENCYCLIDINE SCREEN,URINE NEGATIVE (NEGATIVE)
[2017-09-09 16:00] VITALS: BP 129/82
[2017-09-09] MEDS: METHOCARBAMOL 750 MG TABLET PO PRN (16:07)
[2017-09-09] MEDS: IBUPROFEN 600 MG TABLET PO PRN (16:07)
[2017-09-09] MEDS: BUPRENORPHINE HCL 2 MG TAB.SUBL SL PRN (16:08)
[2017-09-09] MEDS ORDERED: SUMATRIPTAN SUCCINATE 50 MG TABLET PO PRN (16:15)
[2017-09-09 17:44] LABS: BASOPHILS # (AUTO) 0.1 K/uL (0.0-8.0); BASOPHILS % (AUTO) 0.7 % (0.0-2.0); EOSINOPHILS % (AUTO) 0.1 % (0.0-7.0); HEMATOCRIT 45.5 % (36.7-47.1); HEMOGLOBIN 15.3 g/dL (12.5-16.3); LYMPHOCYTES # (AUTO) 2.5 K/uL (20.0-40.0); LYMPHOCYTES % (AUTO) 29.2 % (20.5-51.5); MEAN CORPUSCULAR HEMOGLOBIN 26.8 uug (23.8-33.4); MEAN CORPUSCULAR HGB CONC 34 g/dL (32.5-36.3); MEAN CORPUSCULAR VOLUME 79.7 fL (73.0-96.2); MONOCYTES # (AUTO) 0.7 K/uL (2.0-10.0); MONOCYTES % (AUTO) 8.3 % (0.0-11.0); NEUTROPHILS # (AUTO) 5.2 K/uL (1.8-8.9); NEUTROPHILS % (AUTO) 61.7 % (38.5-71.5); PLATELET COUNT (AUTO) 385 K/uL (152-348); RED BLOOD CELL COUNT(AUTO) 5.71 MIL/uL (4.06-5.63); WHITE BLOOD COUNT (AUTO) 8.4 K/uL (3.6-10.2)
[2017-09-09 17:52] LABS: BILIRUBIN,TOTAL 0.2 mg/dL (0.2-1.0); MAGNESIUM 1.8 mg/dL (1.8-2.4); POTASSIUM 3.4 mmol/L (3.5-5.1)
[2017-09-09 17:59] LABS: THYROID STIMULATING HORMONE 1.019 mIU/mL (0.358-3.740)
[2017-09-09] MEDS ORDERED: POTASSIUM CHLORIDE 10 MEQ TAB.PRT.SR PO ONE (18:30)
[2017-09-09 20:00] VITALS: BP 160/100
[2017-09-09] MEDS ORDERED: LORAZEPAM 1 MG TABLET PO SCH (21:00)
[2017-09-09] MEDS: GABAPENTIN 300MG PO SCH (21:43)
[2017-09-10] VITALS (7 sets, daily range): BP systolic 135–159; BP diastolic 79–95
[2017-09-10] MEDS: LORAZEPAM 1 MG TABLET PO PRN ×2 (06:22→17:14)
[2017-09-10] MEDS: MULTIVITAMINS,THERAPEUTIC TABLET PO SCH (08:30)
[2017-09-10] MEDS: THIAMINE HCL 100 MG TABLET PO SCH (08:30)
[2017-09-10] MEDS: HCTZ PO SCH (08:30)
[2017-09-10] MEDS: VALSARTAN PO SCH (08:30)
[2017-09-10] MEDS: GABAPENTIN 300MG PO SCH ×3 (08:30→20:16)
[2017-09-10] MEDS: FOLIC ACID 1 MG TABLET PO SCH (08:30)
[2017-09-10] MEDS: LORAZEPAM 1 MG TABLET PO SCH ×4 (08:31→20:15)
[2017-09-10] MEDS ORDERED: THIAMINE HCL 100 MG TABLET PO SCH (09:00)
[2017-09-10] MEDS ORDERED: TUBERCULIN,PURIF.PROT.DERIV. 5 TU/0.1 ML TEST ID ONE (09:00)
[2017-09-10] MEDS ORDERED: METOPROLOL 50 MG PO SCH (09:00)
[2017-09-10] MEDS ORDERED: hydrALAZINE HCL 50 MG TABLET PO PRN (11:15)
[2017-09-10] MEDS: ACETAMINOPHEN 325 MG TABLET PO PRN (12:27)
[2017-09-10] MEDS: METHOCARBAMOL 750 MG TABLET PO PRN (12:27)
[2017-09-10] MEDS ORDERED: METOPROLOL SUCCINATE XL 50 MG TAB.SR.24H PO ONE (13:00)
[2017-09-10] MEDS: VENLAFAXINE XR 75 MG CAP.SR.24H PO SCH (16:32)
[2017-09-10] MEDS: BUPRENORPHINE HCL 2 MG TAB.SUBL SL PRN (16:45)
[2017-09-10] MEDS: TRAZODONE 50 MG TABLET PO SCH (20:15)
[2017-09-11 04:00] VITALS: BP 132/86
[2017-09-11 06:06] LABS: HEPATITIS B SURFACE AG Negative (Negative)
[2017-09-11 08:00] VITALS: BP 135/85
[2017-09-11] MEDS: FOLIC ACID 1 MG TABLET PO SCH (08:57)
[2017-09-11] MEDS: THIAMINE HCL 100 MG TABLET PO SCH (08:57)
[2017-09-11] MEDS: VENLAFAXINE XR 75 MG CAP.SR.24H PO SCH (08:57)
[2017-09-11] MEDS: MULTIVITAMINS,THERAPEUTIC TABLET PO SCH (08:57)
[2017-09-11] MEDS: LORAZEPAM 1 MG TABLET PO SCH ×3 (08:57→20:12)
[2017-09-11] MEDS: METHOCARBAMOL 750 MG TABLET PO PRN (08:57)
[2017-09-11] MEDS: METOPROLOL 50 MG PO SCH (08:58)
[2017-09-11] MEDS: VALSARTAN PO SCH (08:58)
[2017-09-11] MEDS: GABAPENTIN 300MG PO SCH ×3 (08:58→20:12)
[2017-09-11] MEDS: HCTZ PO SCH (08:58)
[2017-09-11] MEDS: ACETAMINOPHEN 325 MG TABLET PO PRN (08:59)
[2017-09-11] MEDS: BUPRENORPHINE HCL 2 MG TAB.SUBL SL PRN ×2 (09:28→17:17)
[2017-09-11 12:00] VITALS: BP 138/87
[2017-09-11 16:00] VITALS: BP 138/89
[2017-09-11 20:00] VITALS: BP 135/84
[2017-09-11] MEDS: TRAZODONE 50 MG TABLET PO SCH (20:12)
[2017-09-12 04:00] VITALS: BP_SYST 108; BP_SYST 157; BP_DIAS 58; BP_DIAS 87
[2017-09-12 05:44] VITALS: BP 126/80
[2017-09-12 08:00] VITALS: BP 123/77
[2017-09-12] MEDS: THIAMINE HCL 100 MG TABLET PO SCH (08:46)
[2017-09-12] MEDS: FOLIC ACID 1 MG TABLET PO SCH (08:46)
[2017-09-12] MEDS: MULTIVITAMINS,THERAPEUTIC TABLET PO SCH (08:46)
[2017-09-12] MEDS: VENLAFAXINE XR 75 MG CAP.SR.24H PO SCH (08:47)
[2017-09-12] MEDS: BUPRENORPHINE HCL 2 MG TAB.SUBL SL PRN (08:47)
[2017-09-12] MEDS: ACETAMINOPHEN 325 MG TABLET PO PRN (08:47)
[2017-09-12] MEDS: METOPROLOL 50 MG PO SCH (08:48)
[2017-09-12] MEDS: GABAPENTIN 300MG PO SCH ×3 (08:48→20:31)
[2017-09-12] MEDS: VALSARTAN PO SCH (08:49)
[2017-09-12] MEDS: HCTZ PO SCH (08:49)
[2017-09-12] MEDS ORDERED: LORAZEPAM 1 MG TABLET PO SCH ×2 (09:00→21:00)
[2017-09-12] MEDS ORDERED: AMLODIPINE 5 MG TABLET PO SCH (09:00)
[2017-09-12 12:00] VITALS: BP 143/87
[2017-09-12] MEDS: LORAZEPAM 1 MG TABLET PO SCH ×2 (12:17→16:56)
[2017-09-12 16:00] VITALS: BP_SYST 123; BP_SYST 148; BP_DIAS 74; BP_DIAS 82
[2017-09-12 20:00] VITALS: BP 123/73
[2017-09-12] MEDS: METHOCARBAMOL 750 MG TABLET PO PRN (20:32)
[2017-09-12] MEDS: TRAZODONE 50 MG TABLET PO SCH (20:32)
[2017-09-12] MEDS: AMLODIPINE 5 MG TABLET PO SCH (20:38)
[2017-09-13] VITALS: BP 127/80
[2017-09-13 04:00] VITALS: BP 123/82
[2017-09-13 08:00] VITALS: BP 132/57
[2017-09-13] MEDS ORDERED: LORAZEPAM 1 MG TABLET PO SCH ×3 (09:00→21:00)
[2017-09-13] MEDS: AMLODIPINE 5 MG TABLET PO SCH (09:12)
[2017-09-13] MEDS: THIAMINE HCL 100 MG TABLET PO SCH (09:12)
[2017-09-13] MEDS: VENLAFAXINE XR 75 MG CAP.SR.24H PO SCH (09:12)
[2017-09-13] MEDS: METHOCARBAMOL 750 MG TABLET PO PRN ×2 (09:12→17:24)
[2017-09-13] MEDS: MULTIVITAMINS,THERAPEUTIC TABLET PO SCH (09:12)
[2017-09-13] MEDS: FOLIC ACID 1 MG TABLET PO SCH (09:12)
[2017-09-13] MEDS: ACETAMINOPHEN 325 MG TABLET PO PRN (09:13)
[2017-09-13] MEDS: METOPROLOL 50 MG PO SCH (09:13)
[2017-09-13] MEDS: HCTZ PO SCH (09:13)
[2017-09-13] MEDS: VALSARTAN PO SCH (09:13)
[2017-09-13] MEDS: GABAPENTIN 300MG PO SCH ×3 (09:15→20:10)
[2017-09-13 12:00] VITALS: BP 137/71
[2017-09-13] MEDS: IBUPROFEN 600 MG TABLET PO PRN (14:15)
[2017-09-13 16:00] VITALS: BP 122/70
[2017-09-13] MEDS: BUPRENORPHINE HCL 2 MG TAB.SUBL SL PRN (17:24)
[2017-09-13 20:08] VITALS: BP 108/72
[2017-09-13] MEDS: TRAZODONE 50 MG TABLET PO SCH (20:10)
[2017-09-14 00:08] VITALS: BP 127/74
[2017-09-14 04:20] VITALS: BP 130/81
[2017-09-14] MEDS: METHOCARBAMOL 750 MG TABLET PO PRN (05:34)
[2017-09-14] MEDS: IBUPROFEN 600 MG TABLET PO PRN (05:34)
[2017-09-14 08:00] VITALS: BP 122/67
[2017-09-14] MEDS: LORAZEPAM 1 MG TABLET PO SCH ×3 (08:44→20:22)
[2017-09-14] MEDS: MULTIVITAMINS,THERAPEUTIC TABLET PO SCH (08:44)
[2017-09-14] MEDS: AMLODIPINE 10 MG TABLET PO SCH (08:44)
[2017-09-14] MEDS: FOLIC ACID 1 MG TABLET PO SCH (08:44)
[2017-09-14] MEDS: THIAMINE HCL 100 MG TABLET PO SCH (08:44)
[2017-09-14] MEDS: METOPROLOL 50 MG PO SCH (08:45)
[2017-09-14] MEDS: VENLAFAXINE XR 75 MG CAP.SR.24H PO SCH (08:45)
[2017-09-14] MEDS: VALSARTAN PO SCH (08:46)
[2017-09-14] MEDS: HCTZ PO SCH (08:46)
[2017-09-14] MEDS: GABAPENTIN 300MG PO SCH ×3 (08:46→20:22)
[2017-09-14] MEDS: BUPRENORPHINE HCL 2 MG TAB.SUBL SL PRN (08:54)
[2017-09-14] MEDS ORDERED: LORAZEPAM 1 MG TABLET PO SCH (09:00)
[2017-09-14] MEDS ORDERED: METHYL SALICYLATE/MENTHOL CREAM 28 GM TUBE TOP PRN (10:30)
[2017-09-14 12:39] VITALS: BP 120/67
[2017-09-14] MEDS ORDERED: METO50TA7 PO (12:45)
[2017-09-14] MEDS ORDERED: DICY20TA28 PO (12:45)
[2017-09-14] MEDS ORDERED: METH-406 PO (12:45)
[2017-09-14] MEDS ORDERED: AMLO10TA2 PO (12:45)
[2017-09-14] MEDS ORDERED: TRAZ-144 PO (12:45)
[2017-09-14] MEDS ORDERED: IBUP-1955 PO (12:45)
[2017-09-14] MEDS ORDERED: VENL75CA56 PO (12:45)
[2017-09-14] MEDS: KETOROLAC TROMETHAMINE 30 MG INJ IM PRN (14:07)
[2017-09-14 16:38] VITALS: BP 144/101
[2017-09-14 20:08] VITALS: BP 108/70
[2017-09-14] MEDS: TRAZODONE 50 MG TABLET PO SCH (20:21)
[2017-09-15 00:35] VITALS: BP 122/76
[2017-09-15 04:03] VITALS: BP 128/85
[2017-09-15] MEDS: PANTOPRAZOLE SODIUM 40 MG TABLET.DR PO SCH (07:01)
[2017-09-15 08:00] VITALS: BP 130/81
[2017-09-15] MEDS: VENLAFAXINE XR 75 MG CAP.SR.24H PO SCH (08:20)
[2017-09-15] MEDS: AMLODIPINE 10 MG TABLET PO SCH (08:20)
[2017-09-15] MEDS: THIAMINE HCL 100 MG TABLET PO SCH (08:21)
[2017-09-15] MEDS: GABAPENTIN 300 MG CAPSULE PO SCH ×3 (08:21→20:17)
[2017-09-15] MEDS: MULTIVITAMINS,THERAPEUTIC TABLET PO SCH (08:21)
[2017-09-15] MEDS: METOPROLOL 50 MG PO SCH (08:22)
[2017-09-15] MEDS: FOLIC ACID 1 MG TABLET PO SCH (08:22)
[2017-09-15] MEDS: VALSARTAN PO SCH (08:23)
[2017-09-15] MEDS: HCTZ PO SCH (08:23)
[2017-09-15] MEDS ORDERED: LORAZEPAM 1 MG TABLET PO SCH (09:00)
[2017-09-15] MEDS: KETOROLAC TROMETHAMINE 30 MG INJ IM PRN (09:07)
[2017-09-15 12:00] VITALS: BP 118/69
[2017-09-15 16:00] VITALS: BP 135/78
[2017-09-15 20:00] VITALS: BP 132/78
[2017-09-15] MEDS: TRAZODONE 50 MG TABLET PO SCH (20:17)
[2017-09-16] MEDS: PANTOPRAZOLE SODIUM 40 MG TABLET.DR PO SCH (06:28)
[2017-09-16 08:00] VITALS: BP 131/94
[2017-09-16] MEDS: VALSARTAN PO SCH (08:12)
[2017-09-16] MEDS: HCTZ PO SCH (08:12)
[2017-09-16] MEDS: METOPROLOL 50 MG PO SCH (08:14)
[2017-09-16] MEDS: VENLAFAXINE XR 75 MG CAP.SR.24H PO SCH (08:15)
[2017-09-16] MEDS: FOLIC ACID 1 MG TABLET PO SCH (08:15)
[2017-09-16] MEDS: GABAPENTIN 300 MG CAPSULE PO SCH (08:16)
[2017-09-16] MEDS: IBUPROFEN 600 MG TABLET PO PRN (08:16)
[2017-09-16 08:17] VITALS: BP 131/94
[2017-09-16] MEDS: MULTIVITAMINS,THERAPEUTIC TABLET PO SCH (08:17)
[2017-09-16] MEDS: THIAMINE HCL 100 MG TABLET PO SCH (08:17)
[2017-09-16] MEDS: AMLODIPINE 10 MG TABLET PO SCH (08:17)
== END 2017-09-16 10:38 | DRG 895 ==
LOC: SRC 13:36
PROVIDERS: ADMIT Internal Medicine; ATTEND Internal Medicine
PROC: HZ2ZZZZ Detoxification Services for Substance Abuse Treatment (ICD-10-PCS; principal; 2017-09-09)
PROC: HZ31ZZZ Individual Counseling for Substance Abuse Treatment, Behavioral (ICD-10-PCS; 2017-09-11)
DX: F10.232 Alcohol dependence with withdrawal with perceptual disturbance (principal); Z86.74 Personal history of sudden cardiac arrest; A04.72 Enterocolitis due to Clostridium difficile, not specified as recurrent; I65.29 Occlusion and stenosis of unspecified carotid artery; I15.9 Secondary hypertension, unspecified; K70.10 Alcoholic hepatitis without ascites; F13.239 Sedative, hypnotic or anxiolytic dependence with withdrawal, unspecified; Y90.6 Blood alcohol level of 120-199 mg/100 ml; F11.23 Opioid dependence with withdrawal; Z79.899 Other long term (current) drug therapy; Z81.1 Family history of alcohol abuse and dependence; Z96.651 Presence of right artificial knee joint; Z96.641 Presence of right artificial hip joint; Z91.5 Personal history of self-harm; E78.5 Hyperlipidemia, unspecified; E87.6 Hypokalemia; G89.29 Other chronic pain; M50.30 Other cervical disc degeneration, unspecified cervical region; G47.00 Insomnia, unspecified; E66.9 Obesity, unspecified; Z68.30 Body mass index [BMI] 30.0-30.9, adult; F32.9 Major depressive disorder, single episode, unspecified; G43.909 Migraine, unspecified, not intractable, without status migrainosus; E11.9 Type 2 diabetes mellitus without complications; M54.5 Low back pain
CPT/HCPCS: 36415; 70030-TC; 80307; 83735; 84443; 85025; 86580; 86592; 86705; 86803; 87340; 87806; 93005; G0480; J1885; Q0163

== ENCOUNTER 2021-07-12 17:55 | Inpatient (IN) | payer MEDICARE ==
[~2021-07-12] VITALS: Ht 180.3 cm; Wt 93.0 kg
[~2021-07-12 17:55] MED LIST changes: +AMLO10TA59 PO; -BISA-79 PO; -CARI350T PO; -CLON0.1T14 PO; +DICY20TA2 PO; -FAMO40TA71 PO; +FIDA200T PO; -GABA-534 PO; +IBUP-1955 PO; -IBUP-1957 PO; +METF-494 PO; +METO50TA7 PO; -MUPI22OI2; +RIZA10TA27 PO; -ROSU20TA PO; +ROSU20TA2 PO; +TRAZ-252 PO; +VENL75CA56 PO
--- NOTE | 2021-07-12 18:15 | NUR ---
Pt is medically cleared to be admitted to MHU by Dr Pratt. Left message for PET Zoila Jameson RN.
--- NOTE | 2021-07-12 18:31 | NUR ---
Recieved a call from Shy Jameson RN.
[2021-07-12] MEDS ORDERED: LINA5TAB PO (18:57)
[2021-07-12] MEDS ORDERED: OLME40TA12 PO (18:57)
[2021-07-12] MEDS ORDERED: RIZA10TA27 PO (18:57)
[2021-07-12] MEDS ORDERED: AMLO10TA59 PO (18:57)
[2021-07-12] MEDS ORDERED: NICO1PAT44 TP (18:57)
[2021-07-12] MEDS ORDERED: TRAZ-257 PO (18:57)
[2021-07-12] MEDS ORDERED: CARI350T27 PO (18:57)
[2021-07-12] MEDS ORDERED: OXYC1TAB12 PO (18:57)
[2021-07-12] MEDS ORDERED: ROSU20TA2 PO (18:57)
[2021-07-12] MEDS ORDERED: CLON0.1T PO (18:57)
[2021-07-12] MEDS ORDERED: QUET25TA PO (18:57)
[2021-07-12] MEDS ORDERED: PANT40TA49 PO (18:57)
[2021-07-12] MEDS ORDERED: METF-442 PO (18:57)
[2021-07-12] MEDS ORDERED: PREG300C PO (18:57)
[2021-07-12] MEDS ORDERED: METO-357 PO (18:57)
[2021-07-12] MEDS ORDERED: FAMO40TA7 PO (18:57)
[2021-07-12] MEDS ORDERED: CITA40TA11 PO (18:57)
--- NOTE | 2021-07-12 18:58 | NUR ---
Dinner tray provided, pt ate w/ moderate appetite. Resting in bed, watching TV.
--- NOTE | 2021-07-12 19:20 | NUR ---
Shy RN at bedside for PET evaluation
--- NOTE | 2021-07-12 19:34 | NUR ---
Patient is to be transferred to MHU for voluntary admission. Under care of Dr. Gonzalez/Soo. Belongs List completed
[2021-07-12 20:30] VITALS: BP 118/84
[2021-07-12] MEDS ORDERED: BLOOD SUGAR DIAGNOSTIC 1 EACH STRIP VI ONE (21:15)
[2021-07-12] MEDS ORDERED: MAG HYDROX/AL HYDROX/SIMETH 30 ML LIQUID UDC PO PRN (21:15)
[2021-07-12] MEDS ORDERED: MAGNESIUM HYDROXIDE 30 ML LIQUID UDC PO PRN (21:15)
[2021-07-12] MEDS ORDERED: ACETAMINOPHEN 325 MG TABLET PO PRN (21:15)
[2021-07-12] MEDS: TEMAZEPAM 7.5 MG CAPSULE PO PRN (22:39)
[2021-07-12] MEDS: CLONAZEPAM 0.5 MG TABLET PO PRN (22:39)
[2021-07-12] MEDS ORDERED: IBUPROFEN 600 MG TABLET PO PRN (23:15)
[2021-07-12] MEDS ORDERED: RIZATRIPTAN BENZOATE 10 MG PO PRN (23:15)
[2021-07-12] MEDS ORDERED: Medication Not On Formulary EA (Oxycodone Hcl/Acetaminophen (Oxycodone-Apap 10-325 Mg Ta PO SCH (23:15)
--- NOTE | 2021-07-13 05:45 | NUR ---
GPS/NSG Patient is a 66yr old male admitted to [facility] on a voluntary status. Patient was transferred from [facility]. Son took the patient for an evaluation after the patient verbalized suicidal ideation. Patient has a history of of alcohol abuse, according to medical records up to five fifths of fire ball. On admission patient denies suicidal ideation however admits to having suicidal thoughts in the past. Patient was oriented to the unit, denied admission process, stated he wanted to sleep. Prn for insomnia and anxiety was administered as ordered. Patient was alert, oriented x4. Skin appeared intact. Plan of care initiated, safety precautions in place. monitor Q15 minutes.
[2021-07-13 07:30] VITALS: BP_SYST 121; BP_SYST 140; BP_DIAS 64; BP_DIAS 89
[2021-07-13 07:33] LABS: BILIRUBIN,TOTAL 0.3 mg/dL (0.2-1.0); CREATININE 0.8 mg/dL (0.6-1.3); POTASSIUM 4.1 mmol/L (3.5-5.1)
[2021-07-13] MEDS: PANTOPRAZOLE SODIUM 40 MG TABLET.DR PO SCH (07:51)
[2021-07-13] MEDS: PREGABALIN 100 MG CAPSULE PO SCH ×2 (08:25→17:05)
[2021-07-13] MEDS: NICOTINE 14 MG/24HR PATCH TD SCH (08:25)
[2021-07-13] MEDS: LOSARTAN POTASSIUM 50 MG TABLET PO SCH (08:26)
[2021-07-13] MEDS: LINAGLIPTIN 5 MG TABLET PO SCH (08:26)
[2021-07-13] MEDS: AMLODIPINE 10 MG TABLET PO SCH (08:26)
[2021-07-13] MEDS: METFORMIN HCL 500 MG TABLET PO SCH ×2 (08:26→17:05)
[2021-07-13] MEDS: METOPROLOL SUCCINATE XL 50 MG TAB.SR.24H PO SCH (08:26)
[2021-07-13] MEDS: CLONIDINE HCL 0.1 MG TABLET PO SCH ×3 (08:27→17:05)
--- NOTE | 2021-07-13 10:38 | NUR ---
GPS: PHARMACY CALLED TO ASK PT ABOUT MAXALT IF SOMEONE CAN BRING/SEND IT HERE. PER PT, IT'S OKAY AND HE DOES NOT NEED IT AT THIS TIME.
[2021-07-13] MEDS: METHOCARBAMOL 750 MG TABLET PO PRN (11:18)
[2021-07-13] MEDS: CLONAZEPAM 0.5 MG TABLET PO PRN ×2 (11:18→21:18)
--- NOTE | 2021-07-13 11:56 | NUR ---
GPS: MRSA TEST DONE ON BOTH NARES. WILL WAIT FOR RESULT.
[2021-07-13 16:00] VITALS: BP 121/64
--- NOTE | 2021-07-13 17:57 | NUR ---
GPS: PT ALERT AND VERBALLY RESPONSIVE. DENIES ANY PAIN OR DISCOMFORT AT THIS TIME. PT PARTICIPATED WITH GROUP THERAPY TODAY. PT ALSO STAYS IN ACTIVITY ROOM AND WATCH TV. NO AGITATION NOTED. PT COOPERATIVE WITH CARE AND MEDICATIONS GIVEN.
[2021-07-13 20:00] VITALS: BP 87/58
[2021-07-13] MEDS ORDERED: FAMOTIDINE 20 MG TABLET PO SCH (21:00)
[2021-07-13] MEDS: TEMAZEPAM 7.5 MG CAPSULE PO PRN (21:18)
[2021-07-13] MEDS: ATORVASTATIN 40 MG TABLET PO SCH (21:18)
[2021-07-14] MEDS: PANTOPRAZOLE SODIUM 40 MG TABLET.DR PO SCH (08:07)
[2021-07-14] MEDS: METFORMIN HCL 500 MG TABLET PO SCH ×2 (08:07→17:10)
[2021-07-14 08:09] VITALS: BP 119/69
[2021-07-14] MEDS: PREGABALIN 100 MG CAPSULE PO SCH ×2 (08:51→16:44)
[2021-07-14] MEDS: LINAGLIPTIN 5 MG TABLET PO SCH (08:51)
[2021-07-14] MEDS: AMLODIPINE 10 MG TABLET PO SCH (08:52)
[2021-07-14] MEDS: CITALOPRAM 20 MG TABLET PO SCH (08:52)
[2021-07-14] MEDS: LOSARTAN POTASSIUM 50 MG TABLET PO SCH (08:53)
[2021-07-14] MEDS: METOPROLOL SUCCINATE XL 50 MG TAB.SR.24H PO SCH (08:53)
[2021-07-14] MEDS: NICOTINE 14 MG/24HR PATCH TD SCH (08:54)
[2021-07-14] MEDS: CLONIDINE HCL 0.1 MG TABLET PO SCH ×3 (09:00→16:44)
--- NOTE | 2021-07-14 13:37 | NUR ---
STEFF Initial Discharge Note: Pt was admitted to [facility] voluntarily. Pt currently resides at [address] [place] [address]. Per pt, pt will return home to his family upon discharge. Per pt's son, Ferny ([phone]), pt is welcome back home upon discharge. SW will contact Ferny upon discharge and arrange transportation with either Ferny or pt's .
[2021-07-14] MEDS: METHOCARBAMOL 750 MG TABLET PO PRN (16:54)
[2021-07-14] MEDS: CLONAZEPAM 0.5 MG TABLET PO PRN ×2 (16:54→21:37)
--- NOTE | 2021-07-14 18:32 | NUR ---
Gps/Asphalt Smoother- Attends and participates in his group therapy, encouraged continued verbalizations of his feelings, had been pleasant redirectable. Complained of lower back pain/spasms , robaxin 750 mg 1 tab po, verbalized adequate relief.
[2021-07-14 19:50] VITALS: BP 101/58
[2021-07-14] MEDS: ATORVASTATIN 40 MG TABLET PO SCH (20:06)
[2021-07-14] MEDS: TEMAZEPAM 7.5 MG CAPSULE PO PRN (21:38)
[2021-07-15] MEDS: METHOCARBAMOL 750 MG TABLET PO PRN ×3 (01:36→17:15)
[2021-07-15] MEDS: CLONAZEPAM 0.5 MG TABLET PO PRN ×3 (01:36→20:03)
--- NOTE | 2021-07-15 02:33 | NUR ---
Received patient in the day room. Awake , alert and oriented. The patient denied having active SI, and made a safety contract with this board writer. The patient was able to engage in meaningful conversation at that time. Patient stated that he wants to quit drinking alcohol. During the shift, this patient c/o pain and anxiety and has been routinely asking for medications. This board writer moved the patient to a different room, d/t the patient complaining of his room mate keeping him up "all night by talking." Continuing to monitor the patient for safety and pain. No acute distress noted at this time.
[2021-07-15] MEDS: PANTOPRAZOLE SODIUM 40 MG TABLET.DR PO SCH (06:10)
[2021-07-15 07:30] VITALS: BP 112/58
[2021-07-15] MEDS: PREGABALIN 100 MG CAPSULE PO SCH ×2 (09:01→16:12)
[2021-07-15] MEDS: LOSARTAN POTASSIUM 50 MG TABLET PO SCH (09:02)
[2021-07-15] MEDS: LINAGLIPTIN 5 MG TABLET PO SCH (09:02)
[2021-07-15] MEDS: CITALOPRAM 20 MG TABLET PO SCH (09:02)
[2021-07-15] MEDS: METFORMIN HCL 500 MG TABLET PO SCH ×2 (09:03→17:03)
[2021-07-15] MEDS: AMLODIPINE 10 MG TABLET PO SCH (09:03)
[2021-07-15] MEDS: METOPROLOL SUCCINATE XL 50 MG TAB.SR.24H PO SCH (09:04)
[2021-07-15] MEDS: NICOTINE 14 MG/24HR PATCH TD SCH (09:05)
[2021-07-15] MEDS: CLONIDINE HCL 0.1 MG TABLET PO SCH ×3 (09:05→17:00)
--- NOTE | 2021-07-15 15:44 | NUR ---
SW Admit Source: Pt was admitted to [facility] voluntairly. Pt currently resides at [address] [place] [address]. Per pt, pt will return home to his family upon discharge. Per pt's son, Ferny ([phone]), pt is welcome back home and transportation will be provided by Ferny.
[2021-07-15 17:12] VITALS: BP 109/65
[2021-07-15 20:00] VITALS: BP 107/62
[2021-07-15] MEDS: ATORVASTATIN 40 MG TABLET PO SCH (20:03)
[2021-07-15] MEDS: TEMAZEPAM 7.5 MG CAPSULE PO PRN (21:14)
[2021-07-16] MEDS: CLONAZEPAM 0.5 MG TABLET PO PRN ×3 (00:02→20:12)
--- NOTE | 2021-07-16 06:14 | NUR ---
No changes from the previous night supervisor. The patient denied SI and made a verbal contract, with this hand sign writer, for safety. The patient was anxious at times and asked for PRN medications. Mood is depressed, the patient is calm and cooperative. Safety stratiges in place.
[2021-07-16] MEDS: PANTOPRAZOLE SODIUM 40 MG TABLET.DR PO SCH (06:36)
[2021-07-16] MEDS: NICOTINE 14 MG/24HR PATCH TD SCH (08:16)
[2021-07-16] MEDS: LOSARTAN POTASSIUM 50 MG TABLET PO SCH (08:16)
[2021-07-16] MEDS: PREGABALIN 100 MG CAPSULE PO SCH ×2 (08:16→16:17)
[2021-07-16] MEDS: CITALOPRAM 20 MG TABLET PO SCH (08:16)
[2021-07-16] MEDS: LINAGLIPTIN 5 MG TABLET PO SCH (08:16)
[2021-07-16] MEDS: METFORMIN HCL 500 MG TABLET PO SCH ×2 (08:16→16:16)
[2021-07-16] MEDS: METOPROLOL SUCCINATE XL 50 MG TAB.SR.24H PO SCH (08:17)
[2021-07-16] MEDS: AMLODIPINE 10 MG TABLET PO SCH (08:17)
[2021-07-16] MEDS: CLONIDINE HCL 0.1 MG TABLET PO SCH ×3 (08:17→16:01)
[2021-07-16] MEDS: METHOCARBAMOL 750 MG TABLET PO PRN (08:17)
[2021-07-16 08:42] VITALS: BP 123/75
[2021-07-16 16:05] VITALS: BP 108/66
[2021-07-16 20:11] VITALS: BP 116/65
[2021-07-16] MEDS: ATORVASTATIN 40 MG TABLET PO SCH (20:11)
[2021-07-16] MEDS: DICYCLOMINE HCL 20 MG TABLET PO PRN (21:03)
[2021-07-17] MEDS: TEMAZEPAM 7.5 MG CAPSULE PO PRN ×2 (01:30→23:42)
--- NOTE | 2021-07-17 05:31 | NUR ---
Patient slept better than the previous night and appears less anxious. Patient denies SI and was willing to make a contract for safety with this [place] underwriter. At one point in the evening the patient requested medication for his upset stomach and frequent loose bowel movements r/t " Multiple abdominal surgeries ". Patient continues to be depressed and has " Plans to stop drinking". The patient does seem hopeful at this time about his "future ". Safety stratiges are in place.
[2021-07-17] MEDS: PANTOPRAZOLE SODIUM 40 MG TABLET.DR PO SCH (06:04)
[2021-07-17 07:40] VITALS: BP 139/81
[2021-07-17] MEDS: LOSARTAN POTASSIUM 50 MG TABLET PO SCH (08:51)
[2021-07-17] MEDS: AMLODIPINE 10 MG TABLET PO SCH (08:51)
[2021-07-17] MEDS: CITALOPRAM 20 MG TABLET PO SCH (08:51)
[2021-07-17] MEDS: METFORMIN HCL 500 MG TABLET PO SCH ×2 (08:51→16:50)
[2021-07-17] MEDS: NICOTINE 14 MG/24HR PATCH TD SCH (08:52)
[2021-07-17] MEDS: PREGABALIN 100 MG CAPSULE PO SCH ×2 (08:52→16:50)
[2021-07-17] MEDS: METOPROLOL SUCCINATE XL 50 MG TAB.SR.24H PO SCH (08:52)
[2021-07-17] MEDS: CLONIDINE HCL 0.1 MG TABLET PO SCH ×3 (08:52→16:49)
[2021-07-17] MEDS: LINAGLIPTIN 5 MG TABLET PO SCH (08:52)
[2021-07-17] MEDS: METHOCARBAMOL 750 MG TABLET PO PRN ×2 (08:54→21:36)
--- NOTE | 2021-07-17 09:59 | NUR ---
GPS: PT ALERT AND VERBALLY RESPONSIVE. AT ACTIVITY ROOM LIKES WATCHING TV. NO AGITATION NOTED AT THIS TIME. PT CALM AND RELAXED. REQUESTED FOR MUSCLE RELAXANT ROBAXIN, GIVEN MEDS AND TOLERATED WELL.
[2021-07-17] MEDS: CLONAZEPAM 0.5 MG TABLET PO PRN ×2 (15:05→22:24)
[2021-07-17] MEDS: DICYCLOMINE HCL 20 MG TABLET PO PRN (16:02)
[2021-07-17 16:48] VITALS: BP 92/48
[2021-07-17 19:48] VITALS: BP 103/49
[2021-07-17] MEDS: ATORVASTATIN 40 MG TABLET PO SCH (21:20)
[2021-07-18] MEDS: PANTOPRAZOLE SODIUM 40 MG TABLET.DR PO SCH (06:25)
[2021-07-18 08:08] VITALS: BP 118/65
[2021-07-18] MEDS: METOPROLOL SUCCINATE XL 50 MG TAB.SR.24H PO SCH (08:24)
[2021-07-18] MEDS: METFORMIN HCL 500 MG TABLET PO SCH ×2 (08:24→18:07)
[2021-07-18] MEDS: LINAGLIPTIN 5 MG TABLET PO SCH (08:24)
[2021-07-18] MEDS: NICOTINE 14 MG/24HR PATCH TD SCH (08:24)
[2021-07-18] MEDS: PREGABALIN 100 MG CAPSULE PO SCH ×2 (08:24→18:07)
[2021-07-18] MEDS: CLONAZEPAM 0.5 MG TABLET PO PRN ×3 (08:24→21:43)
[2021-07-18] MEDS: CITALOPRAM 20 MG TABLET PO SCH (08:24)
[2021-07-18] MEDS: METHOCARBAMOL 750 MG TABLET PO PRN ×2 (08:25→20:35)
[2021-07-18] MEDS: LOSARTAN POTASSIUM 50 MG TABLET PO SCH (08:25)
[2021-07-18] MEDS: CLONIDINE HCL 0.1 MG TABLET PO SCH (08:26)
[2021-07-18] MEDS: AMLODIPINE 10 MG TABLET PO SCH (08:26)
--- NOTE | 2021-07-18 09:44 | NUR ---
GPS: PT RECEIVED TODAY, ALERT AND VERBALLY RESPONSIVE. ALL AM MEDS TAKEN AND TOLERATED WELL AND REQUESTED ROBAXIN AND KLONOPIN. NO AGITATION NOTED. PT SPENDS MORE TIME IN THE ACTIVITY ROOM ENJOYING WATCHING TV AND PARTICIPATE WITH GROUP ACTIVITIES.
[2021-07-18] MEDS ORDERED: CLONIDINE HCL 0.1 MG TABLET PO PRN (10:45)
--- NOTE | 2021-07-18 10:47 | NUR ---
GPS: PT GETTING LOW BLOOD PRESSURE FOR 2 DAYS NOW. MD ORDERED TO CHANGE FREQUENCY OF CLONIDINE FROM ROUTINE TO NEEDED IF SBP > 160MMHG. WILL MONITOR PT.
--- NOTE | 2021-07-18 14:25 | NUR ---
GPS: PT FEELS ANXIOUS, REQUESTED KLONOPIN. GIVEN AND TOLERATED WELL.
[2021-07-18] MEDS: DICYCLOMINE HCL 20 MG TABLET PO PRN (16:08)
[2021-07-18 16:57] VITALS: BP 117/64
--- NOTE | 2021-07-18 18:21 | NUR ---
GPS: PT REQUESTED FOR BENTYL THIS AFTERNOON. PT COOPERATIVE WITH CARE AND COMPLIANT WITH MEDS. NO AGITATION NOTED. PT STAYS IN ACTIVITY ROOM AND PARTICIPATED IN GROUP THERAPY.
[2021-07-18 20:20] VITALS: BP 120/70
[2021-07-18] MEDS: ATORVASTATIN 40 MG TABLET PO SCH (20:35)
[2021-07-18] MEDS: TEMAZEPAM 7.5 MG CAPSULE PO PRN (20:36)
--- NOTE | 2021-07-19 03:03 | NUR ---
Received to care, highly visible on unit, pleasant upon approach, denying any suicidal ideation, or desire to hurt himself. Anxious about his medications, and wanting them all at the same time. PRN Restoril was given at 2034, for insomnia. He was still awake and anxious at 2142, so PRN Klonopin was given. He went to sleep after that, and has slept well through the night, no distress noted. Will continue to monitor closely for safety.
[2021-07-19] MEDS: PANTOPRAZOLE SODIUM 40 MG TABLET.DR PO SCH (07:03)
[2021-07-19 08:00] VITALS: BP 122/79
[2021-07-19] MEDS: METHOCARBAMOL 750 MG TABLET PO PRN ×2 (09:15→19:58)
[2021-07-19] MEDS: CLONAZEPAM 0.5 MG TABLET PO PRN ×3 (09:15→21:01)
[2021-07-19] MEDS: METOPROLOL SUCCINATE XL 50 MG TAB.SR.24H PO SCH (09:38)
[2021-07-19] MEDS: LOSARTAN POTASSIUM 50 MG TABLET PO SCH (09:38)
[2021-07-19] MEDS: AMLODIPINE 10 MG TABLET PO SCH (09:38)
[2021-07-19] MEDS: PREGABALIN 100 MG CAPSULE PO SCH ×2 (09:38→18:04)
[2021-07-19] MEDS: CITALOPRAM 20 MG TABLET PO SCH (09:38)
[2021-07-19] MEDS: LINAGLIPTIN 5 MG TABLET PO SCH (09:38)
[2021-07-19] MEDS: NICOTINE 14 MG/24HR PATCH TD SCH (09:39)
[2021-07-19] MEDS: METFORMIN HCL 500 MG TABLET PO SCH ×2 (09:39→18:04)
--- NOTE | 2021-07-19 10:16 | NUR ---
GPS: PT RECEIVED TODAY ALERT AND VERBALLY RESPONSIVE. REQUESTED FOR KLONOPIN AND ROBAXIN. COMPLIANT WITH MEDS AND COOPERATIVE WITH CARE. NO AGITATION NOTED.
[2021-07-19 16:40] VITALS: BP 114/68
[2021-07-19 19:57] VITALS: BP 123/71
[2021-07-19] MEDS: ATORVASTATIN 40 MG TABLET PO SCH (20:05)
--- NOTE | 2021-07-19 20:30 | NUR ---
RECEIVED PATIENT IN THE DAY ROOM. HE IS NOTED A/O X 4 ABLE TO VERBALIZED FEELINGS. HE CONTINUE FIXED ON GETTING ALL HIS PRNs (MUSCLE RELAXER, ANXIETY AND INSOMNIA MEDICATIONS). PATIENT DENIED SI/HI/VH/AH. HE IS ABLE TO VERBALLY CFS. PATIENT V/S ARE STABLE. HE WAS GIVEN PO FLUIDS AND SNACKS. PATIENT IS REASSURED FOR HIS SAFETY. SAFETY AND FALL PRECAUTIONS ARE IN PLACE. WILL CONTINUE TO MONITOR.
[2021-07-19] MEDS: TEMAZEPAM 7.5 MG CAPSULE PO PRN (21:43)
[2021-07-20] MEDS: PANTOPRAZOLE SODIUM 40 MG TABLET.DR PO SCH (06:10)
[2021-07-20 07:30] VITALS: BP 109/66
[2021-07-20] MEDS: METHOCARBAMOL 750 MG TABLET PO PRN ×2 (08:53→18:39)
[2021-07-20] MEDS: NICOTINE 14 MG/24HR PATCH TD SCH (08:54)
[2021-07-20] MEDS: METFORMIN HCL 500 MG TABLET PO SCH ×2 (08:54→17:19)
[2021-07-20] MEDS: PREGABALIN 100 MG CAPSULE PO SCH ×2 (08:54→17:19)
[2021-07-20] MEDS: AMLODIPINE 10 MG TABLET PO SCH (08:55)
[2021-07-20] MEDS: METOPROLOL SUCCINATE XL 50 MG TAB.SR.24H PO SCH (08:56)
[2021-07-20] MEDS: LINAGLIPTIN 5 MG TABLET PO SCH (08:57)
[2021-07-20] MEDS: CITALOPRAM 20 MG TABLET PO SCH (08:57)
[2021-07-20] MEDS: LOSARTAN POTASSIUM 50 MG TABLET PO SCH (08:58)
--- NOTE | 2021-07-20 10:51 | NUR ---
STEFF Follow Up Appointment Update: STEFF contacted pt's outpatient psychiatrist, Dr. Dexter ([phone]) and left a voicemail for a call back to schedule an appointment for the pt post discharge from [facility].
[2021-07-20] MEDS: CLONAZEPAM 0.5 MG TABLET PO PRN ×2 (12:28→20:49)
--- NOTE | 2021-07-20 13:25 | NUR ---
patient remains compliant to treatment plans. remains A&Ox3. able to communicate and express needs. patient attends group therapy @10am. @ 1200 patient c/o feeling anxiety and requested to have klonopin as ordered. Patient V/S checked prior to administering klonopin, w/in normal limits. @ 1230 Klonopin 0.5 mg given. evaluated klonipin effect @1330 and is effective as per patient states "I don't feel anxious as of now". will continue to monitor
[2021-07-20 16:00] VITALS: BP 119/63
[2021-07-20 20:00] VITALS: BP 103/65
[2021-07-20] MEDS: TEMAZEPAM 7.5 MG CAPSULE PO PRN (20:49)
[2021-07-20] MEDS: ATORVASTATIN 40 MG TABLET PO SCH (20:49)
[2021-07-21] MEDS: PANTOPRAZOLE SODIUM 40 MG TABLET.DR PO SCH (07:00)
[2021-07-21 07:30] VITALS: BP 113/73
[2021-07-21] MEDS: LOSARTAN POTASSIUM 50 MG TABLET PO SCH (08:44)
[2021-07-21] MEDS: PREGABALIN 100 MG CAPSULE PO SCH ×2 (08:44→16:52)
[2021-07-21] MEDS: LINAGLIPTIN 5 MG TABLET PO SCH (08:45)
[2021-07-21] MEDS: METOPROLOL SUCCINATE XL 50 MG TAB.SR.24H PO SCH (08:45)
[2021-07-21] MEDS: CITALOPRAM 20 MG TABLET PO SCH (08:45)
[2021-07-21] MEDS: METFORMIN HCL 500 MG TABLET PO SCH ×2 (08:45→16:51)
[2021-07-21] MEDS: NICOTINE 14 MG/24HR PATCH TD SCH (08:46)
[2021-07-21] MEDS: AMLODIPINE 10 MG TABLET PO SCH (08:46)
[2021-07-21] MEDS: METHOCARBAMOL 750 MG TABLET PO PRN ×2 (08:59→16:23)
[2021-07-21] MEDS: CLONAZEPAM 0.5 MG TABLET PO PRN ×3 (08:59→21:17)
--- NOTE | 2021-07-21 13:00 | NUR ---
report given to charge nurse on duty
[2021-07-21 16:00] VITALS: BP_SYST 145; BP_SYST 90; BP_DIAS 48; BP_DIAS 75
[2021-07-21 20:00] VITALS: BP 100/73
[2021-07-21] MEDS: TEMAZEPAM 7.5 MG CAPSULE PO PRN (21:17)
[2021-07-21] MEDS: ATORVASTATIN 40 MG TABLET PO SCH (21:17)
[2021-07-22] MEDS: PANTOPRAZOLE SODIUM 40 MG TABLET.DR PO SCH (07:00)
[2021-07-22 07:30] VITALS: BP 125/72
[2021-07-22] MEDS: METHOCARBAMOL 750 MG TABLET PO PRN (08:07)
[2021-07-22] MEDS: CLONAZEPAM 0.5 MG TABLET PO PRN (08:07)
[2021-07-22] MEDS: PREGABALIN 100 MG CAPSULE PO SCH (08:22)
[2021-07-22] MEDS: CITALOPRAM 20 MG TABLET PO SCH (08:22)
[2021-07-22] MEDS: LINAGLIPTIN 5 MG TABLET PO SCH (08:22)
[2021-07-22] MEDS: AMLODIPINE 10 MG TABLET PO SCH (08:23)
[2021-07-22] MEDS: METFORMIN HCL 500 MG TABLET PO SCH (08:23)
[2021-07-22 08:24] VITALS: BP 125/72
[2021-07-22] MEDS: NICOTINE 14 MG/24HR PATCH TD SCH (08:24)
[2021-07-22] MEDS: LOSARTAN POTASSIUM 50 MG TABLET PO SCH (08:24)
[2021-07-22] MEDS: METOPROLOL SUCCINATE XL 50 MG TAB.SR.24H PO SCH (08:24)
--- NOTE | 2021-07-22 08:37 | NUR ---
STEFF Discharge Note: Pt will be discharged to [place] [address] [place] [address] via family transportation at 11AM. STEFF spoke with pts son, Ferny ([phone]) who stated he is agreeable with the discharge plan and will provide transportation for the pt from [facility] today. Pt is aware and agreeable with discharge plans. Pt is alert and oriented x4, is unable to plan for self-care at this time; however, is willing to accept care from his family at home. Pt denies any suicidal or homicidal ideation. Pt will follow-up with his outpatient Psychiatrist, Dr. Dexter ([phone]) and Electrophysiology Nurse Practitioner. STEFF called twice and left a voicemail for a call back for Dr. Dexter regarding follow-up appointment for pt. Pt presents with calm mood and congruent affect.
--- NOTE | 2021-07-22 10:40 | NUR ---
Gps/Gang Drill Press Operator- Discharge instructions reviewed with patient, safety emphasized, medications/precriptions, diet, skin care, follow up with his Psychiatrist Dr Dexter, and his Primary Medical Doctor to set an appointment. All belonging given back to patient. Adequate relief from his pain/discomfort. Patient's son Ferny to provide transportation . Patient in good spirit, no complaints noted.
--- NOTE | 2021-07-22 11:00 | NUR ---
Gps/Rug Receiving Clerk- Discharged to home via private car, accompanied by his son Ferny ,no complaints noted , patient in good spirit, all belongings/valuables given back to patient
== END 2021-07-22 11:05 | disposition home or self-care (01) | DRG 881 ==
LOC: ER 17:57 → GPS 20:07
PROVIDERS: ADMIT Nurse Practitioner Psychiatric/Mental Health; ATTEND Student in an Organized Health Care Education/Training Program
DX: F32.9 Major depressive disorder, single episode, unspecified (principal); F41.9 Anxiety disorder, unspecified; E11.9 Type 2 diabetes mellitus without complications; Z79.84 Long term (current) use of oral hypoglycemic drugs; I10 Essential (primary) hypertension; F17.210 Nicotine dependence, cigarettes, uncomplicated; Z59.9 Problem related to housing and economic circumstances, unspecified; F10.21 Alcohol dependence, in remission; F11.11 Opioid abuse, in remission
CPT/HCPCS: 36415; A4663